=== PATIENT | female | born 1960 | race Two or more races ===

== ENCOUNTER 2022-01-12 12:13 | Day surgery (SDC) | payer BC, OTHER ==
[2022-01-08 15:44] VITALS: BMI 41.5
[2022-01-12] MEDS ORDERED: CELECOXIB 200 MG CAPSULE ONE (12:20)
[2022-01-12] MEDS: CELECOXIB 200 MG CAPSULE PO ONE (12:30)
[2022-01-12] MEDS ORDERED: MIDAZOLAM HCL 2 MG/2 ML SINGLE DOSE VIAL ONE ×4 (14:08→16:32)
[2022-01-12] MEDS ORDERED: BUPIVACAINE LIPOSOME/PF (EXPAREL) 266 MG/20 ML VIAL ONE (14:08)
[2022-01-12] MEDS ORDERED: BUPIVACAINE HCL/PF 0.5% (5MG/ML) 10 ML VIAL ONE ×2 (14:08→14:48)
[2022-01-12] MEDS ORDERED: VANCOMYCIN 1,000 MG VIAL (RESTRICTED TO ID ONLY) ONE (14:09)
[2022-01-12] MEDS ORDERED: ceFAZolin SODIUM 1 GM VIAL ONE ×2 (14:09→22:31)
[2022-01-12] MEDS ORDERED: CEFAZOLIN 2 GM in DEXTROSE 5%-WATER - 50 ML IVPB ONE (14:30)
[2022-01-12] MEDS ORDERED: TRANEXAMIC ACID 1000 MG/10 ML VIAL IVPUSH ONE (14:30)
[2022-01-12] MEDS ORDERED: ePHEDrine SULFATE 50 MG/1 ML AMPULE ONE (15:55)
[2022-01-12] MEDS ORDERED: ONDANSETRON 4 MG/2 ML VIAL IVPUSH PRN ×2 (15:55→16:25)
[2022-01-12] MEDS ORDERED: MAG HYDROX/AL HYDROX/SIMETH 30 ML UNIT-DOSE CUP PO PRN (15:55)
[2022-01-12] MEDS ORDERED: LACTATED RINGERS SOLUTION 1,000 ML IV SCH (16:00)
[2022-01-12] MEDS ORDERED: PATIENT'S OWN MEDICATION (NON-FORMULARY) (Semaglutide [Ozempic] 1 MG/0.75 ML Pen.Injctr) SQ SCH (16:00)
[2022-01-12] MEDS ORDERED: oxyCODONE HCL 5 MG TABLET PO PRN (16:25)
[2022-01-12] MEDS ORDERED: ACETAMINOPHEN INJECTION 100 ML IVPB ONE (17:44)
[2022-01-12] MEDS: ACETAMINOPHEN 1000 MG/100 ML BAG IVPB ONE (17:55)
[2022-01-12] MEDS: KETOROLAC TROMETHAMINE 30 MG/1 ML VIAL IVPUSH SCH ×2 (18:35→22:26)
[2022-01-12] MEDS: metFORMIN HCL 500 MG TABLET (FP) PO SCH (18:35)
[2022-01-12] MEDS: INSULIN SLIDING SCALE (NOVOLOG) 1 VIAL SQ SCH ×2 (18:36→22:28)
[2022-01-12] MEDS ORDERED: LATANOPROST 0.005% OPHTH SOLN 2.5ML BOTTLE OU SCH (22:00)
[2022-01-12] MEDS: ACETAMINOPHEN 500 MG TABLET (FP) PO SCH (22:25)
[2022-01-12] MEDS: oxyCODONE HCL 10 MG SUSTAINED ACTING TABLET PO SCH (22:27)
[2022-01-12] MEDS: SENNOSIDES/DOCUSATE COMBO (SENNA PLUS) TABLET (UD) PO SCH (22:27)
[2022-01-12] MEDS ORDERED: DEXTROSE 5%-WATER - 100 ML IVPB ONE (22:31)
[2022-01-12] MEDS: CEFAZOLIN 3 GM in DEXTROSE 5%-WATER - 100 ML IVPB SCH (22:34)
[2022-01-13] MEDS: ACETAMINOPHEN 500 MG TABLET (FP) PO SCH ×3 (04:30→16:20)
[2022-01-13] MEDS ORDERED: ceFAZolin SODIUM 1 GM VIAL ONE (06:16)
[2022-01-13] MEDS ORDERED: DEXTROSE 5%-WATER - 100 ML IVPB ONE (06:16)
[2022-01-13] MEDS: CEFAZOLIN 3 GM in DEXTROSE 5%-WATER - 100 ML IVPB SCH (06:32)
[2022-01-13] MEDS: oxyCODONE HCL 5 MG TABLET PO PRN ×2 (06:35→14:50)
[2022-01-13] MEDS: metFORMIN HCL 500 MG TABLET (FP) PO SCH ×2 (06:36→16:19)
[2022-01-13] MEDS: INSULIN SLIDING SCALE (NOVOLOG) 1 VIAL SQ SCH ×3 (06:46→16:19)
[2022-01-13] MEDS: ACETAMINOPHEN 1000 MG/100 ML BAG IVPB ONE (07:24)
[2022-01-13] MEDS: CELECOXIB 200 MG CAPSULE PO ONE (07:24)
[2022-01-13] MEDS: LACTATED RINGERS SOLUTION 1,000 ML IV SCH ×2 (07:25→16:19)
[2022-01-13] MEDS ORDERED: ASPIRIN 325 MG TABLET PO SCH (08:00)
[2022-01-13 08:27] LABS: HEMATOCRIT 29.5 % (32.4-45.2); HEMOGLOBIN 9.7 G/dL (10.7-15.3); MCH 26.4 pg (25.7-33.7); MCHC 32.7 g/dl (32.0-36.0); MEAN CELL VOLUME 80.5 fl (80-96); MEAN PLT VOLUME 8.6 fl (7.5-11.1); PLATELET COUNT 300.9 10^3/uL (134-434); RBC 3.66 10^6/uL (3.60-5.2); WHITE BLOOD COUNT 8.5 10^3/uL (4.0-10.8)
[2022-01-13] MEDS: SENNOSIDES/DOCUSATE COMBO (SENNA PLUS) TABLET (UD) PO SCH (09:42)
[2022-01-13] MEDS: oxyCODONE HCL 10 MG SUSTAINED ACTING TABLET PO SCH (09:42)
[2022-01-13] MEDS ORDERED: PATIENT'S OWN MEDICATION (NON-FORMULARY) (Dorzolamide/Timolol/Pf [Dorzolamide-Timolol 2%-0 OU SCH (10:00)
[2022-01-13] MEDS ORDERED: HYDROCHLOROTHIAZIDE 25 MG TABLET (FP) PO SCH (10:00)
[2022-01-13] MEDS ORDERED: MULTIVITAMINS (DAILY MVI) TABLET (FP) PO SCH (10:00)
[2022-01-13] MEDS ORDERED: PANTOPRAZOLE 40 MG TABLET PO SCH (10:00)
[2022-01-13] MEDS ORDERED: LOSARTAN POTASSIUM 50 MG TABLET PO SCH (10:00)
[2022-01-13 13:52] VITALS: BP 130/75; PULSE 79; TEMP 98
== END 2022-01-13 17:09 | disposition home health service (06) ==
LOC: FASUSAT 12:13 → FM/S 18:31 → FASUSAT 01-13 17:09
PROVIDERS: ATTEND Orthopaedic Surgery
PROC: 8E0YXBZ Computer Assisted Procedure of Lower Extremity (ICD-10-PCS; 2022-01-12)
PROC: 8E0Y0CZ Robotic Assisted Procedure of Lower Extremity, Open Approach (ICD-10-PCS; 2022-01-12)
PROC: 0SRD0JA Replacement of Left Knee Joint with Synthetic Substitute, Uncemented, Open Approach (ICD-10-PCS; principal; 2022-01-12 16:01)
DX: M17.11 Unilateral primary osteoarthritis, right knee (principal)
CPT/HCPCS: 20985; 27447; C1776; S2900; 36415; 73560-TC-RT-FY; 82962; 85027; 94760; 97010-GP; 97116-GP; 97161-GP